=== PATIENT | female | born 1995 | race Caucasian/White ===

== ENCOUNTER 2019-08-12 22:36 | Emergency (ER) | payer SELFPAY ==
[~2019-08-12] VITALS: Ht 147.3 cm; Wt 72.7 kg
[~2019-08-12 22:36] MED LIST: AUGMENTIN875TAB PO; CIPROFLOXACN500 MG PO; CORTISPORIN OTI10 ML AD; ULTRAM50 M1 PO; WELLBUTRIN SR150 MG PO; [UNRECOGNIZED DRUG - REMARK]
[2019-08-12] MEDS ORDERED: HYDROCO/APAP1 TA9 PO (23:42)
[2019-08-13 00:22] VITALS: BP 130/65
== END 2019-08-13 00:22 | disposition home or self-care (01) | DRG 563 ==
LOC: ED 22:36
DX: S92.354A Nondisplaced fracture of fifth metatarsal bone, right foot, initial encounter for closed fracture (principal); X50.0XXA Overexertion from strenuous movement or load, initial encounter; Y93.89 Activity, other specified; Y92.007 Garden or yard of unspecified non-institutional (private) residence as the place of occurrence of the external cause; Y99.9 Unspecified external cause status

== ENCOUNTER 2019-12-29 | Observation (INO) | payer MEDICAID ==
[~2019-12-29] MED LIST changes: +HYDROCO/APAP1 TA9 PO
--- NOTE | 2019-12-29 02:00 | NUR ---
BROUGHT STRAIGHT BACK TO ROOM.
[2019-12-29 03:13] LABS: HEMATOCRIT 39.9 % (37.0-47.0); HEMOGLOBIN 13.3 g/dl (12.0-16.0); IMMATURE GRANULOCYTES 0.6 % (0.0-5.0); MEAN CELL VOLUME 91.7 fL CALC (80.0-100.0); MEAN CORPUSCULAR HGB 30.6 pG CALC (26.0-32.0); MEAN CORPUSCULAR HGB CONC 33.3 g/L CALC (32.0-36.0); NEUT# 16.85 thou/uL (2.00-7.15); RED BLOOD COUNT 4.35 mill/uL (4.20-5.60); RED CELL DISTRI WIDTH 12.8 % (11.5-15.5)
[2019-12-29 03:21] LABS: ACT PARTIAL THROMBO TIME 29.1 SECONDS (20.0-32.5); ALBUMIN 4.4 g/dL (3.2-5.0); ALKALINE PHOSPHATASE 121 u/l (38-126); ANION GAP 13 (6-22 (CALC)); BUN 8 mg/dL (7-17); BUN/CREATININE RATIO 16 (12-20 (CALC)); CARBON DIOXIDE 26 mmol/l (22-30); CHLORIDE 102 mmol/l (95-108); CREATININE 0.5 mg/dL (0.5-1.0); GFR > 60 ML/MIN (>=60 (CALC)); GFR FOR AFR.AMER. > 60 ML/MIN (>=60 (CALC)); INTERNATIONAL NORMALIZED RATIO 1.1 RATIO (0.7-1.3); LIPASE 33 u/l (23-300); POTASSIUM 4.3 mmol/l (3.5-5.1); SGOT/AST 32 u/l (14-36); SODIUM 137 mmol/l (137-146); TOTAL PROTEIN 8.5 g/dL (6.3-8.2)
[2019-12-29 03:30] LABS: BILIRUBIN, TOTAL 0.6 mg/dL (0.0-1.4)
--- NOTE | 2019-12-29 04:14 | NUR ---
20 GAUGE IV STARTED FOR CTA. PT TO BR TO GET URINE SAMPLE.
--- NOTE | 2019-12-29 04:24 | NUR ---
PT TO CT VIA W/C.
[2019-12-29 04:29] LABS: URINE BLOOD DIPSTICK SMALL (NEGATIVE); URINE CLARITY CLEAR; URINE COLOR YELLOW; URINE GLUCOSE - DIPSTICK NEGATIVE (NEGATIVE); URINE KETONE NEGATIVE (NEGATIVE); URINE LEUK ESTERASE NEGATIVE (Negative); URINE PH 7.5 (4.5-8.0); URINE PROTEIN - DIPSTICK TRACE mg/dL (NEG-TRACE)
[2019-12-29 04:36] LABS: BARBITURATES NEGATIVE (NEGATIVE); COCAINE NEGATIVE (NEGATIVE); METHADONE NEGATIVE (NEGATIVE); OXCYCODONE NEGATIVE (NEGATIVE); TETRAHYDROCANNABIONOL NEGATIVE (NEGATIVE); TRICYLIC ANTIDEPRESSANTS NEGATIVE (NEGATIVE)
[2019-12-29 04:38] LABS: URINE BILIRUBIN - DIPSTICK SMALL (NEGATIVE)
[2019-12-29 04:39] LABS: URINE NITRITE - DIPSTICK NEGATIVE (Negative)
[2019-12-29 04:41] LABS: URINE BACTERIA MANY hpf; URINE EPITHELIAL CELLS MODERATE EPI/hpf (0-FEW)
--- NOTE | 2019-12-29 04:55 | NUR ---
PT RETURNED FROM CT. C/O VOMITING IN CT AND STILL HAS SOME EPIGASTRIC PAIN.
--- NOTE | 2019-12-29 05:23 | NUR ---
PT RESTING. C/O NAUSEA. PHENERGAN GIVEN.
--- NOTE | 2019-12-29 07:00 | NUR ---
REPORT RECIEVED FROM DANIEL WALLS
--- NOTE | 2019-12-29 07:53 | NUR ---
PT STATES THAT SHE IS FEELING BETTER AT THIS TIME, AWAITING ADMISSION, IV PATENT WITH ANTIBIOTICS RUNNING
--- NOTE | 2019-12-29 07:58 | NUR ---
REPORT CALLED TO NAIDA FLYNN RN ACCEPTED PT
--- NOTE | 2019-12-29 08:10 | NUR ---
Admission Note Report Given to: RINA RN Transported by: Wheelchair X Stretcher Transported with: X Nurse Transporter X Patent IV O2 Filler Blender Location: ICU X MS2 TRANSPORTED TO [facility] [place] [facility]
[2019-12-29 08:30] VITALS: BP 141/83
--- NOTE | 2019-12-29 09:02 | NUR ---
ASSESSMENT DONE. PT IS A&O X3 BUT DROWSY. PT STATED PAIN ABD 3/10 BUT DENIES PAIN MEDICATION. RESPS EVEN AND UNLABORED. DISCUSS POC WITH PT RE: DR. PAZ PLAN. PT VERBALIZED UNDERSTANING. PT DENIES NEEDS AT THIS TIME. PT STATED SHE IS SLEEPY. SAFETY PRECAUTIONS REINFORCED AND CALL LIGHT IN REACH.
--- NOTE | 2019-12-29 09:20 | NUR ---
CALLED OR SPOKE TO MALOU AND GAVE HER THE ROOM NUMBER OF PT AND THAT DOCTOR BRANDI WANTS TO SCHEDULE A PROCEDURE TOMORROW.
--- NOTE | 2019-12-29 11:58 | NUR ---
PT IS RESTING IN BED WITH NO S/S OF DISTRESS NOTED. PT STATED PAIN IS FINE. PT DENIES ANY PAIN MEDICATIONS AT THIS TIME. IVF INFUSING WELL. CALL LIGHT IN REACH.
[2019-12-29 15:30] VITALS: BP 122/84
--- NOTE | 2019-12-29 15:40 | NUR ---
PT HAS A TEMP 100.1. MEDICATED PT WITH TYLENOL. MADE ROOM COOL. PT DENIES PAIN AT THIS TIME. CALL LIGHT IN REACH.
[2019-12-29 18:40] VITALS: BP 121/55
--- NOTE | 2019-12-29 20:30 | NUR ---
PT ASSESSMENT COMPLETED AT THIS TIME. NO S/O DISTRESS NOTED. PT DENIES PAIN AT THIS TIME. VISITOR JUST ARRIVED TO VISIT.
[2019-12-29 23:52] VITALS: BP 130/89
[2019-12-30] VITALS (11 sets, daily range): BP systolic 112–128; BP diastolic 23–81
--- NOTE | 2019-12-30 00:01 | NUR ---
PT SLEEPING, ANTIBIOTIC THERAPY ADMINISTERED AT THIS TIME. NO S/O DISTRESS NOTED. PO FLUIDS REMOVED FROM BST, DISCUSSED W/PT EARLIER REGARDING NPO STATUS AT MIDNIGHT.
--- NOTE | 2019-12-30 05:00 | NUR ---
PT MEDICATED FOR PAIN 5/10 ON PAIN SCALE. PT VERY RELUCTANT TO TAKE MEDICATION, BUT WANTED SOMETHING FOR PAIN, OFFERED NON-MEDICAL INTERVENTIONS PRIOR TO MEDICATING. PT ASKING MANY QUESTIONS REGARDING SURGERY, CIRCUMSTANCE AND DX. EDUCATED PT MUCH POSSIBLE RE DX AND POC, BUT ENCOURAGED HER TO ASK PHYSICIAN/SURGEON QUESTIONS WHEN THEY COME TO DISCUSS PROCEDURE W/HER.
--- NOTE | 2019-12-30 05:40 | NUR ---
PT REPORTS FEELING MUCH BETTER SINCE BEING MEDICATED W/PAIN MEDICATION. ATTEMPTING TO SLEEP.
--- NOTE | 2019-12-30 07:53 | NUR ---
ASSESSMENT DONE. PT IS A&O X3. PT DENIES PAIN. PT STATED PAIN IS FINE. IVF INFUSING WELL. PT NPO. PT IS VISITING WITH FRIENDS IN ROOM. PT DENIES NEEDS AT THIS TIME. CALL LIGHT IN REACH.
--- NOTE | 2019-12-30 10:07 | NUR ---
PT WENT TO OR VIA BED BY TITI BUTCHER AND PT MOM.
--- NOTE | 2019-12-30 13:10 | NUR ---
PT CAME BACK FROM OR VIA BED BY GUADALUPE. PT STATED PAIN 6/10 IN ABD BUT DENIES PAIN MEDICATION AT THIS TIME. X4 INCISION IN ABD CDI. IVF INFUSING WELL. SCD IN PLACE. PT MOM IN ROOM. PT DENIES ANY NEEDS AT THIS TIME. CALL LIGHT IN REACH.
--- NOTE | 2019-12-30 16:15 | NUR ---
PT IS RESTING IN BED WITH NO S/S OF DISTRESS NOTED. O2 AT 2L VIA NC. PT DENIES PAIN AT THIS TIME. CALL LIGHT IN REACH.
--- NOTE | 2019-12-30 20:37 | NUR ---
PT ASSESSMENT COMPLETED AT THIS TIME. POC DISCUSSED, PT HAS LOTS OF QUESTIONS. PT ENCOURAGED TO MOVE AND DEEP BREATHE. PT IS AWARE THAT SHE WILL WEAR OXYGEN TO SLEEP. REPORTS PAIN INCREASED AFTER MOVING TO RESTROOM AND BACK TO BED. CALL LIGHT W/IN REACH AND PT ENCOURAGED TO CALL NEEDS ARISE.
--- NOTE | 2019-12-30 23:15 | NUR ---
PT MEDICATED FOR PAIN AND IV ANTIBIOTIC THERAPY ORDERS PROVIDE. IVF DC'D COMPLETED AND DC'D AT THIS TIME. TILL CONTINUE TO MONITOR.
--- NOTE | 2019-12-30 23:57 | NUR ---
ASSISTED PT UP TO RESTROOM AND BACK TO BED. OFFERED TO ASSIST PT WALKING THE LO, REFUSED TO WALK, STATING SHE WANTS TO GO TO SLEEP, BUT PT EXPRESSED BEING AFRAID TO GO TO SLEEP. I TALKED W/PT QUITE A BIT EDUCATING HER ON THE MEDICATION, SURGERY, PROGRESS, NEED TO DEEP BREATHE, NEED TO MOVE CAUTIOUSLY, BUT KEEP MOVING TO EXPEL GAS. PT ASKED IF WE WOULD BE CHECKING ON HER, I ASSURED HER THAT WE WOULD BE DOING HOURLY CHECKS AND THAT HER CALL LIGHT WAS NEXT TO HER HAND AND TO CALL IF SHE HAS ANY CONCERNS AT ALL. DOOR LEFT PARTIALLY OPEN FOR PT COMFORT/PREFERENCE.
--- NOTE | 2019-12-31 01:34 | NUR ---
PT APPEARS TO BE SLEEPING AT THIS TIME, DID NOT AWAKE TO MY ENTERING ROOM. LIGHTS ARE OFF AND TV ON LOW. NO S/O DISTRESS AT THIS TIME.
[2019-12-31 03:40] VITALS: BP 115/70
[2019-12-31 07:45] VITALS: BP 115/79
--- NOTE | 2019-12-31 07:45 | NUR ---
PT SITTING IN BED A&O X3. NO DISTRESS NOTED. C/O OF MILD PAIN IN UPPER QUADRANTS. PT SEEMS SLIGHTLY ANXIOUS ABOUT SITUATION AND WHAT WAS TO BE EXPECTED. EDUCATED PT ON PROCEDURE AND WHAT SHOULD BE EXPECTED. PT CALMED DOWN AND VERBALIZED UNDERSTANDING. 4 LAPROSCOPIC INCISIONS CLEAN AND INTACT WITH DERMABOND. NO OTHER NEEDS AT THIS TIME. EXPLAINED TO PT THAT SHE SHOULD TRY AND AMBULATE AROUND THE ROOM. PER PT SHE WILL TRY LATER. DISCUSSED POC. ASSESSMENT COMPLETED. CALL LIGHT IN REACH. CONTINUE TO MONITOR.
--- NOTE | 2019-12-31 08:39 | NUR ---
DR PAZ AT BEDSIDE
[2019-12-31] MEDS ORDERED: TYLENOL & COD12.5 ML PO (09:00)
--- NOTE | 2019-12-31 10:20 | NUR ---
IV REMOVED. PT TOLERATED WELL. CATHETER INTACT UPON REMOVAL.
--- NOTE | 2019-12-31 11:44 | NUR ---
PT REFUSED ANTIBIOTIC AND IV TORADOL. STATES THAT SHE DOES NOT WANT ANOTHER IV SINCE THE ONE THAT SHE HAD YESTERDAY WAS HURTING HER. PER PT SHE HAD INFORMED THE NURSE YESTERDAY ABOUT THE SWELLING AND PAIN TO HER IV SITE BUT THEY DID NOT ATTEMPT TO FIX THE ISSUE.
--- NOTE | 2019-12-31 12:21 | NUR ---
DISCUSSED D/C INSTRUCTIONS WITH PT. PT VERBALIZED UNDERSTANDING.
--- NOTE | 2019-12-31 12:39 | NUR ---
Discharge instructions given. Patient verbalizes understanding of same. Discharged in stable condition via wheelchair to home with family and staff member. All belongings sent with pt.
== END 2019-12-31 12:40 | disposition home or self-care (01) ==
PROVIDERS: Emergency Medicine; ADMIT Internal Medicine
DX: K80.12 Calculus of gallbladder with acute and chronic cholecystitis without obstruction (principal)
CPT/HCPCS: G0378; J0131; J2060; J2710